=== PATIENT | male | born 1980 | race Caucasian/White ===

== ENCOUNTER 2018-11-13 13:52 | Emergency (ER) | payer SELFPAY ==
[~2018-11-13] VITALS: Ht 185.4 cm; Wt 100.7 kg
[2018-11-13 13:55] VITALS: BP 156/104; Ht 185.4 cm; Wt 100.7 kg
== END 2018-11-13 15:44 | disposition home or self-care (01) ==
LOC: ED 13:52
DX: S61.451A Open bite of right hand, initial encounter (principal); W50.3XXA Accidental bite by another person, initial encounter; Y93.89 Activity, other specified; Y92.89 Other specified places as the place of occurrence of the external cause; Y99.8 Other external cause status